=== PATIENT | female | born 1990 | race Caucasian/White ===

== ENCOUNTER → 2017-02-17 | Outpatient (CLI) | payer BC ==
--- NOTE | 2017-02-18 07:56 | USB ---
Reason for exam: clinical finding. Indicated problem(s): lump or thickening in the left breast. Physical Findings: Nurse Summary: 0.5cm adenopathy in the right axilla subcutaneous area (nurse ts). US Breast RT Right breast ultrasound includes all four quadrants, the retroareolar region and axilla. Finding demonstrates a 5 x 2 x 5mm superficial structure at axilla at palpable. These results were verbally communicated with the patient and result sheet given to the patient on 02/17/17. ASSESSMENT: Probably benign, BI-RAD 3 RECOMMENDATION: Ultrasound of the right breast in 6 months.
== END | disposition home or self-care (01) ==
LOC: RADMAMWWP 14:06
PROVIDERS: ATTEND Family Medicine
DX: N63 Unspecified lump in breast (principal)

== ENCOUNTER → 2022-09-09 | Outpatient (CLI) | payer BC ==
--- NOTE | 2022-09-09 13:49 | US ---
EXAMINATION TYPE: US abdomen complete DATE OF EXAM: 09/09/2022 COMPARISON: NONE CLINICAL HISTORY: 32-year-old female R10.33 PERIUMBILICAL PAIN. TECHNIQUE: Multiple sonographic images of the abdomen are obtained. FINDINGS: EXAM MEASUREMENTS: Liver Length: 13.9 cm Gallbladder Wall: 0.5 cm CBD: 0.1 cm Spleen: 10.5 cm Right Kidney: 11.4 x 4.3 x 5.6 cm Left Kidney: 10.8 x 5.0 x 5.4 cm LOG CLERK NOTES: Pancreas: Pancreatic tail is obscured by bowel gas shadowing. Visualized portions show no gross abnor mality. Liver: wnl Gallbladder: GILBERTO sign, sludge and stone filled, thickened wall Evidence for sonographic Mancini's sign: no CBD: wnl Spleen: wnl Right Kidney: wnl Left Kidney: anechoic structure probable parapelvic cyst measuring 1.6 x 1.2 x 1.2cm. No hydronephro sis. Upper IVC: wnl Abd Aorta: wnl as seen, bifurcation obscured by overlying bowel gas IMPRESSION: 1. Numerous calculi packing the gallbladder lumen. There is wall thickening but no sonographic Mancini sign or surrounding fluid. Correlate for chronic cholecystitis. HIDA scan with ejection fraction if clinically indicated. 2. No biliary ductal dilatation.
--- NOTE | 2022-09-09 14:04 | US ---
EXAMINATION TYPE: US pelvic complete DATE OF EXAM: 09/09/2022 COMPARISON: NONE CLINICAL HISTORY: 32-year-old female R10.33 PERIUMBILICAL PAIN. TECHNIQUE: Transabdominal (TA). Date of LMP: 09-08-22 FINDINGS: EXAM MEASUREMENTS: Uterus: 8.7 x 3.5 x 4.5 cm Endometrial Stripe: 0.4 cm Right Ovary: 2.7 x 1.6 x 1.8 cm Left Ovary: 1.7 x 1.0 x 1.2 cm 1. Uterus: Anteverted and otherwise wnl 2. Endometrium: wnl 3. Right Ovary: wnl 4. Left Ovary: wnl 5. Bilateral Adnexa: wnl 6. Posterior cul-de-sac: wnl IMPRESSION: Unremarkable transabdominal sonographic examination of the pelvis.
== END | disposition home or self-care (01) ==
LOC: RADUSWWP 11:54
PROVIDERS: ATTEND Family Medicine
DX: K80.20 Calculus of gallbladder without cholecystitis without obstruction (principal); R10.33 Periumbilical pain
CPT/HCPCS: 76700; 76856